=== PATIENT | female | born 1990 | race Two or more races ===

== ENCOUNTER 2020-01-04 10:42 | Emergency (ER) | payer MEDICAID ==
[~2020-01-04] VITALS: Ht 160 cm; Wt 75.7 kg
--- NOTE | 2020-01-04 11:00 | NUR ---
assumed care of pt; brad, c/o vaginal bleeding started this morning, per patient she had sexual intercourse last night,c/o back pain,6 weeks G1,P0,A0, pt awake, alert, -sob, nad noted, vss, pending md bui
[2020-01-04 11:30] LABS: BASOPHILS # (AUTO) 0.1 /CMM (0.0-0.2); BASOPHILS % (AUTO) 0.7 % (0.0-2.0); EOSINOPHILS % (AUTO) 1.8 % (0.0-6.0); HEMATOCRIT 39 % (33-45); HEMOGLOBIN 12.7 g/dL (11.5-14.8); LYMPHOCYTES # (AUTO) 2.2 /CMM (0.8-4.8); LYMPHOCYTES % (AUTO) 29.2 % (20.0-44.0); MEAN CORPUSCULAR HGB CONC 33 g/dl (31.0-36.0); MEAN CORPUSCULAR VOLUME 87 fL (82-100); MONOCYTES # (AUTO) 0.5 /CMM (0.1-1.30); MONOCYTES % (AUTO) 6.6 % (2.0-12.0); NEUTROPHILS # (AUTO) 4.7 /CMM (1.8-8.9); NEUTROPHILS % (AUTO) 61.7 % (43.0-81.0); PLATELET COUNT (AUTO) 221 /CMM (150-450); RED BLOOD CELL COUNT(AUTO) 4.44 MIL/uL (4.0-5.2); WHITE BLOOD COUNT (AUTO) 7.7 K/uL (4.3-11.0)
[2020-01-04] MEDS ORDERED: IV NS 0.9% 1,000 ML BAG IV ONE (11:30)
[2020-01-04 11:38] LABS: CALCIUM, SERUM 8.8 mg/dL (8.5-10.1); CREATININE 0.7 mg/dL (0.6-1.3); POTASSIUM 3.5 mmol/L (3.5-5.1)
[2020-01-04 12:04] LABS: ALBUMIN 4.2 g/dL (3.4-5.0); BILIRUBIN,DIRECT 0.1 mg/dL (0.0-0.2); BILIRUBIN,TOTAL 0.5 mg/dL (0.2-1.0); TOTAL PROTEIN, SERUM 7.3 g/dL (6.4-8.2)
[2020-01-04 12:32] LABS: APPEARANCE,URINE Clear (CLEAR); BILIRUBIN,URINE Negative (NEGATIVE); BLOOD, URINE Moderate Ery/uL (NEGATIVE); COLOR,URINE Yellow (YELLOW); KETONES,URINE 15 (NEGATIVE); LEUKOCYTE ESTERASE ,URINE Negative (NEGATIVE); NITRITE, URINE Negative (NEGATIVE); PROTEIN,URINE Negative (NEGATIVE); UGLUCOSE Negative (NEGATIVE); UROBILINOGEN,URINE 0.2 EU/dL (0.2)
--- NOTE | 2020-01-04 12:49 | NUR ---
CHAPERONED DR LYONS DURING PELVIC EXAM
[2020-01-04 12:52] LABS: BACTERIA,URINE Rare /HPF (None Seen); SQUAMOUS EPITHELIAL CELL,UR Few /HPF (None Seen); WBC,URINE 0-2 /HPF (0-3)
--- NOTE | 2020-01-04 13:00 | NUR ---
per lab; pt is not candidate for rhogam
--- NOTE | 2020-01-04 13:58 | NUR ---
Patient discharged to home in stable condition. Written and verbal after care instructions given. Patient verbalizes understanding of instruction. IV removed. Catheter intact and site benign. Pressure and 4x4 applied to site. No bleeding noted.
[2020-01-04 14:00] VITALS: BP 130/69
== END 2020-01-04 14:01 | disposition home or self-care (01) ==
LOC: ER 10:42
DX: O46.91 Antepartum hemorrhage, unspecified, first trimester (principal); O99.511 Diseases of the respiratory system complicating pregnancy, first trimester; J45.909 Unspecified asthma, uncomplicated; Z3A.01 Less than 8 weeks gestation of pregnancy
CPT/HCPCS: 76805; 80048; 80076; 81001; 84702; 85025; 85730; 87491; 87591; 99284; J7030; 36415; 81000-TC

== ENCOUNTER 2020-01-06 12:57 | Emergency (ER) | payer MEDICAID ==
[~2020-01-06] VITALS: Ht 160 cm; Wt 75.7 kg
[2020-01-06 13:01] VITALS: BP 143/80
== END 2020-01-06 14:14 | disposition home or self-care (01) ==
LOC: ER 13:00
DX: O20.0 Threatened abortion (principal); J45.909 Unspecified asthma, uncomplicated
CPT/HCPCS: 36415; 84702-TC

== ENCOUNTER 2020-01-30 13:07 | Emergency (ER) | payer MEDICAID ==
[~2020-01-30] VITALS: Ht 160 cm; Wt 74.8 kg
[2020-01-30] MEDS: IV NS 0.9% 1,000 ML BAG IV ONE (13:40)
[2020-01-30] MEDS ORDERED: METOCLOPRAMIDE HCL 10 MG/2 ML VIAL ONE (13:42)
[2020-01-30 13:44] LABS: BASOPHILS % (AUTO) 0.4 % (0.0-2.0); EOSINOPHILS % (AUTO) 0.6 % (0.0-6.0); HEMATOCRIT 41 % (33-45); HEMOGLOBIN 13.7 g/dL (11.5-14.8); LYMPHOCYTES % (AUTO) 18.5 % (20.0-44.0); MEAN CORPUSCULAR HGB CONC 34 g/dl (31.0-36.0); MEAN CORPUSCULAR VOLUME 87 fL (82-100); MONOCYTES # (AUTO) 0.6 /CMM (0.1-1.30); MONOCYTES % (AUTO) 5.2 % (2.0-12.0); NEUTROPHILS # (AUTO) 8.2 /CMM (1.8-8.9); NEUTROPHILS % (AUTO) 75.3 % (43.0-81.0); PLATELET COUNT (AUTO) 223 /CMM (150-450); RED BLOOD CELL COUNT(AUTO) 4.73 MIL/uL (4.0-5.2); WHITE BLOOD COUNT (AUTO) 10.9 K/uL (4.3-11.0)
[2020-01-30] MEDS: METOCLOPRAMIDE HCL 10 MG/2 ML VIAL IV ONE (13:44)
[2020-01-30 13:51] LABS: CALCIUM, SERUM 9.6 mg/dL (8.5-10.1); CREATININE 0.7 mg/dL (0.6-1.3); POTASSIUM 3.6 mmol/L (3.5-5.1)
[2020-01-30 15:03] VITALS: BP 123/67
--- NOTE | 2020-01-30 15:03 | NUR ---
Patient discharged to home in stable condition. Written and verbal after care instructions given. Patient verbalizes understanding of instruction.
== END 2020-01-30 15:05 | disposition home or self-care (01) ==
LOC: ER 13:12
DX: O21.9 Vomiting of pregnancy, unspecified (principal); O26.891 Other specified pregnancy related conditions, first trimester; E86.0 Dehydration; Z3A.01 Less than 8 weeks gestation of pregnancy
CPT/HCPCS: 80048; 84702; 85025; 96374; 99283; J2765; J7030; 36415

== ENCOUNTER 2020-08-31 12:42 | Emergency (ER) | payer MEDICAID ==
[~2020-08-31] VITALS: Ht 160 cm; Wt 80.3 kg
[2020-08-31 12:50] VITALS: BP 119/85
--- NOTE | 2020-08-31 12:54 | NUR ---
AT BEDSIDE FOR EVAL.
--- NOTE | 2020-08-31 13:00 | NUR ---
Patient discharged to home in stable condition. Written and verbal after care instructions given. Patient verbalizes understanding of instruction.Pt ambulatory with a steady gait
== END 2020-08-31 13:02 | disposition home or self-care (01) ==
LOC: ER 12:44
DX: J02.9 Acute pharyngitis, unspecified (principal); J45.909 Unspecified asthma, uncomplicated

== ENCOUNTER 2020-11-07 20:59 | Emergency (ER) | payer MEDICAID ==
[~2020-11-07] VITALS: Ht 160 cm; Wt 73.0 kg
[2020-11-07] MEDS ORDERED: IV NS 0.9% 1,000 ML BAG IV ONE (22:00)
--- NOTE | 2020-11-07 22:14 | NUR ---
BIBS FOR C/O MID BACK AND ABD PAIN, ON AND OFF H/A, - DYSURIA -N/V TO ER BED 2 ORDERS RECEIVED AND CARRIED OUT
--- NOTE | 2020-11-07 22:30 | NUR ---
tech at bedside for us
[2020-11-07 22:33] LABS: BASOPHILS % (AUTO) 0.4 % (0.0-2.0); EOSINOPHILS % (AUTO) 3.2 % (0.0-6.0); HEMATOCRIT 39 % (33-45); HEMOGLOBIN 12.8 g/dL (11.5-14.8); LYMPHOCYTES # (AUTO) 1.6 /CMM (0.8-4.8); LYMPHOCYTES % (AUTO) 13.2 % (20.0-44.0); MEAN CORPUSCULAR HGB CONC 33 g/dl (31.0-36.0); MEAN CORPUSCULAR VOLUME 89 fL (82-100); MONOCYTES # (AUTO) 0.5 /CMM (0.1-1.30); MONOCYTES % (AUTO) 4.2 % (2.0-12.0); NEUTROPHILS # (AUTO) 9.6 /CMM (1.8-8.9); PLATELET COUNT (AUTO) 229 /CMM (150-450); RED BLOOD CELL COUNT(AUTO) 4.38 MIL/uL (4.0-5.2); WHITE BLOOD COUNT (AUTO) 12.1 K/uL (4.3-11.0)
[2020-11-07 22:51] LABS: BILIRUBIN,DIRECT 0.1 mg/dL (0.0-0.2); BILIRUBIN,TOTAL 0.3 mg/dL (0.2-1.0); CALCIUM, SERUM 9.3 mg/dL (8.5-10.1); CREATININE 0.8 mg/dL (0.6-1.3); POTASSIUM 3.7 mmol/L (3.5-5.1)
[2020-11-07 23:34] LABS: BILIRUBIN,URINE NEGATIVE (NEGATIVE); COLOR,URINE YELLOW (YELLOW); LEUKOCYTE ESTERASE ,URINE NEGATIVE (NEGATIVE); NITRITE, URINE NEGATIVE (NEGATIVE); PROTEIN,URINE NEGATIVE (NEGATIVE); UGLUCOSE NEGATIVE (NEGATIVE); UROBILINOGEN,URINE 0.2 EU/dL (0.2)
[2020-11-07] MEDS ORDERED: IBUPROFEN 400 MG TABLET ONE (23:50)
--- NOTE | 2020-11-07 23:58 | NUR ---
Patient discharged to home in stable condition. Written and verbal after care instructions given. Patient verbalizes understanding of instruction.IV removed. Catheter intact and site benign. Pressure and 4x4 applied to site. No bleeding noted.
[2020-11-07 23:59] VITALS: BP 111/70
[2020-11-08] MEDS ORDERED: IBUPROFEN 400 MG TABLET PO ONE
== END 2020-11-07 23:59 | disposition home or self-care (01) ==
LOC: ER 21:01
DX: K80.50 Calculus of bile duct without cholangitis or cholecystitis without obstruction (principal); G43.909 Migraine, unspecified, not intractable, without status migrainosus; J45.909 Unspecified asthma, uncomplicated
CPT/HCPCS: 36415; 76705; 80048; 80076; 81003; 83690; 85025; 96360; 99284; J7030

== ENCOUNTER 2020-11-19 12:55 | Emergency (ER) | payer MEDICAID ==
[~2020-11-19] VITALS: Ht 160 cm; Wt 72.6 kg
--- NOTE | 2020-11-19 13:15 | NUR ---
BIB SELF C/O RUQ ABDOMINAL PAIN, NAUSEA SINCE LAST NIGHT. VS CHECKED. HOOKED ON MONITOR. SEEN BY MD. IV ACCESS STARTED BLOOD DRAW DONE SENT TO LAB
[2020-11-19] MEDS ORDERED: KETOROLAC TROMETHAMINE 15 MG/ML VIAL ONE (13:37)
[2020-11-19] MEDS ORDERED: ONDANSETRON HCL/PF 4 MG/2 ML VIAL ONE (13:38)
[2020-11-19 13:40] LABS: BASOPHILS % (AUTO) 0.4 % (0.0-2.0); HEMATOCRIT 41 % (33-45); HEMOGLOBIN 13.7 g/dL (11.5-14.8); LYMPHOCYTES # (AUTO) 1.6 /CMM (0.8-4.8); LYMPHOCYTES % (AUTO) 14.8 % (20.0-44.0); MEAN CORPUSCULAR HGB CONC 34 g/dl (31.0-36.0); MEAN CORPUSCULAR VOLUME 89 fL (82-100); MONOCYTES # (AUTO) 0.6 /CMM (0.1-1.30); MONOCYTES % (AUTO) 5.4 % (2.0-12.0); NEUTROPHILS # (AUTO) 8.3 /CMM (1.8-8.9); NEUTROPHILS % (AUTO) 77.4 % (43.0-81.0); PLATELET COUNT (AUTO) 233 /CMM (150-450); RED BLOOD CELL COUNT(AUTO) 4.57 MIL/uL (4.0-5.2); WHITE BLOOD COUNT (AUTO) 10.8 K/uL (4.3-11.0)
[2020-11-19] MEDS: IV NS 0.9% 1,000 ML BAG IV ONE (13:43)
[2020-11-19] MEDS: KETOROLAC TROMETHAMINE INJ 30 MG/ML VIAL IV ONE (13:44)
[2020-11-19] MEDS: ONDANSETRON HCL/PF 4 MG/2 ML VIAL IVP ONE (13:44)
[2020-11-19 13:49] LABS: CALCIUM, SERUM 9.4 mg/dL (8.5-10.1); CREATININE 0.9 mg/dL (0.6-1.3); POTASSIUM 4.3 mmol/L (3.5-5.1)
[2020-11-19 13:54] LABS: ALBUMIN 4.2 g/dL (3.4-5.0); BILIRUBIN,DIRECT 0.1 mg/dL (0.0-0.2); BILIRUBIN,TOTAL 0.4 mg/dL (0.2-1.0); TOTAL PROTEIN, SERUM 8.1 g/dL (6.4-8.2)
--- NOTE | 2020-11-19 14:00 | NUR ---
PT STATES THAT SHE IS STILL UNABLE TO PROVIDE URINE SPECIMEN AT THIS TIME. IV FLUIDS RUNNING
[2020-11-19] MEDS ORDERED: ACET325T53 MC (14:48)
[2020-11-19] MEDS ORDERED: ACETAMINOPHEN 325 MG TABLET ONE (15:23)
[2020-11-19 15:34] VITALS: BP 124/78
[2020-11-19] MEDS: ACETAMINOPHEN 325 MG TABLET PO ONE (15:34)
== END 2020-11-19 15:35 | disposition home or self-care (01) ==
LOC: ER 12:57
DX: K80.70 Calculus of gallbladder and bile duct without cholecystitis without obstruction (principal); G43.909 Migraine, unspecified, not intractable, without status migrainosus; J45.909 Unspecified asthma, uncomplicated
CPT/HCPCS: 76705; 80048; 80076; 83690; 85025; 96361; 96374; 96375; 99284; J1885; J2405; J7030; 36415

== ENCOUNTER 2020-11-30 10:48 | Emergency (ER) | payer MEDICAID ==
[~2020-11-30] VITALS: Ht 160 cm; Wt 72.6 kg
[~2020-11-30 10:48] MED LIST: ACET325T53 MC
--- NOTE | 2020-11-30 11:20 | NUR ---
US AT BEDSIDE
[2020-11-30] MEDS ORDERED: MORPHINE SULFATE INJ 2 MG/ML DISP.SYRIN ONE (11:24)
[2020-11-30] MEDS ORDERED: ONDANSETRON HCL/PF 4 MG/2 ML VIAL ONE (11:24)
--- NOTE | 2020-11-30 11:27 | NUR ---
BIBS FROM HOME TO ER BED 16. AAOX4. NOT IN RESP DISTRESS. AMBULATORY. CAME IN FOR RUQ ABD PAIN SINCE LAST NIGHT. PT REPORTS SHE HAVE GALLBLADDER STONE AND AWATING SURGERY. PAIN IS RATED 6/10 SHARP DULL PAIN RADIATING TO LEFT AND BACK. PT ALSO REPORTS TAHT SHE HAD EPISODES OF VOMMITING AND NAUSEA. MD WAS AT THE BEDSIDE FOR EVAL. ORDERS RECEIVED, NOTED AND CARRIED OUT. US AT BEDSIDE.
[2020-11-30] MEDS ORDERED: ONDANSETRON HCL/PF 4 MG/2 ML VIAL IVP ONE (11:30)
[2020-11-30] MEDS ORDERED: IV NS 0.9% 500 ML BAG IV ONE (11:30)
[2020-11-30] MEDS ORDERED: MORPHINE SULFATE INJ 2 MG/ML DISP.SYRIN IV ONE (11:30)
[2020-11-30 12:05] LABS: BASOPHILS # (AUTO) 0.1 /CMM (0.0-0.2); BASOPHILS % (AUTO) 0.6 % (0.0-2.0); EOSINOPHILS % (AUTO) 1.3 % (0.0-6.0); HEMATOCRIT 39 % (33-45); HEMOGLOBIN 12.8 g/dL (11.5-14.8); LYMPHOCYTES # (AUTO) 1.3 /CMM (0.8-4.8); LYMPHOCYTES % (AUTO) 11.6 % (20.0-44.0); MEAN CORPUSCULAR HGB CONC 32 g/dl (31.0-36.0); MEAN CORPUSCULAR VOLUME 90 fL (82-100); MONOCYTES # (AUTO) 0.5 /CMM (0.1-1.30); MONOCYTES % (AUTO) 4.7 % (2.0-12.0); NEUTROPHILS # (AUTO) 9.2 /CMM (1.8-8.9); NEUTROPHILS % (AUTO) 81.8 % (43.0-81.0); PLATELET COUNT (AUTO) 188 /CMM (150-450); RED BLOOD CELL COUNT(AUTO) 4.39 MIL/uL (4.0-5.2); WHITE BLOOD COUNT (AUTO) 11.3 K/uL (4.3-11.0)
[2020-11-30 12:31] LABS: CALCIUM, SERUM 9.3 mg/dL (8.5-10.1); CREATININE 0.8 mg/dL (0.6-1.3)
[2020-11-30 12:37] LABS: BILIRUBIN,DIRECT 0.1 mg/dL (0.0-0.2); BILIRUBIN,TOTAL 0.4 mg/dL (0.2-1.0); TOTAL PROTEIN, SERUM 7.4 g/dL (6.4-8.2)
[2020-11-30] MEDS ORDERED: AMOX-427 PO (12:48)
[2020-11-30] MEDS ORDERED: IBUP-1957 PO (12:48)
[2020-11-30] MEDS ORDERED: HYDR-3976 GT (12:48)
[2020-11-30 13:02] VITALS: BP 112/70
--- NOTE | 2020-11-30 13:02 | NUR ---
Patient discharged to home in stable condition. Written and verbal after care instructions given. Patient verbalizes understanding of instruction.IV removed. Catheter intact and site benign. Pressure and 4x4 applied to site. No bleeding noted. Pt ambulatory with a steady gait
== END 2020-11-30 13:00 | disposition home or self-care (01) ==
LOC: ER 11:01
DX: K80.50 Calculus of bile duct without cholangitis or cholecystitis without obstruction (principal); G43.909 Migraine, unspecified, not intractable, without status migrainosus; J45.909 Unspecified asthma, uncomplicated; K76.0 Fatty (change of) liver, not elsewhere classified; Z79.899 Other long term (current) drug therapy
CPT/HCPCS: 76705; 80048; 80076; 83690; 85025; 96374; 96375; 99284; J2270; J2405; J7040

== ENCOUNTER 2020-12-01 22:38 | Inpatient (IN) | payer MEDICAID ==
[~2020-12-01] VITALS: Ht 160 cm; Wt 73.0 kg
[~2020-12-01 22:38] MED LIST changes: -ACET325T53 MC; +AMOX-427 PO; +HYDR-3976 GT; +IBUP-1957 PO
--- NOTE | 2020-12-01 22:43 | NUR ---
PT AAOX4. BIBSELF C/O RUQ ABD PAIN. PT WAS SEEN AT [facility] ER X2 DAYS AGO FOR CHOLELITHIASIS. PLACED ON AUGMENTING. PT PLACED IN BED 10 ON MONITOR AND PULSE OX. AWAITING MD FOR EVAL AND ORDERS.
[2020-12-01] MEDS ORDERED: ONDANSETRON HCL/PF 4 MG/2 ML VIAL IVP ONE (23:00)
[2020-12-01] MEDS ORDERED: ONDANSETRON HCL/PF 4 MG/2 ML VIAL ONE (23:00)
[2020-12-01] MEDS ORDERED: MORPHINE SULFATE INJ 2 MG/ML DISP.SYRIN IV ONE (23:00)
[2020-12-01] MEDS ORDERED: MORPHINE SULFATE INJ 4 MG/ML DISP.SYRIN ONE (23:00)
[2020-12-01] MEDS ORDERED: IV NS 0.9% 1,000 ML BAG IV ONE (23:00)
[2020-12-01 23:03] LABS: BASOPHILS # (AUTO) 0.1 /CMM (0.0-0.2); BASOPHILS % (AUTO) 1.4 % (0.0-2.0); EOSINOPHILS % (AUTO) 4.6 % (0.0-6.0); HEMATOCRIT 41 % (33-45); HEMOGLOBIN 13.4 g/dL (11.5-14.8); LYMPHOCYTES # (AUTO) 1.5 /CMM (0.8-4.8); LYMPHOCYTES % (AUTO) 18.9 % (20.0-44.0); MEAN CORPUSCULAR HGB CONC 33 g/dl (31.0-36.0); MEAN CORPUSCULAR VOLUME 89 fL (82-100); MONOCYTES # (AUTO) 0.4 /CMM (0.1-1.30); MONOCYTES % (AUTO) 4.5 % (2.0-12.0); NEUTROPHILS # (AUTO) 5.7 /CMM (1.8-8.9); NEUTROPHILS % (AUTO) 70.6 % (43.0-81.0); PLATELET COUNT (AUTO) 196 /CMM (150-450); RED BLOOD CELL COUNT(AUTO) 4.59 MIL/uL (4.0-5.2); WHITE BLOOD COUNT (AUTO) 8.1 K/uL (4.3-11.0)
[2020-12-01 23:16] LABS: ALBUMIN 4.3 g/dL (3.4-5.0); BILIRUBIN,DIRECT 0.7 mg/dL (0.0-0.2); BILIRUBIN,TOTAL 1.4 mg/dL (0.2-1.0); CALCIUM, SERUM 9.2 mg/dL (8.5-10.1); CREATININE 0.9 mg/dL (0.6-1.3); POTASSIUM 3.6 mmol/L (3.5-5.1)
--- NOTE | 2020-12-02 00:01 | NUR ---
US AT BEDSIDE
--- NOTE | 2020-12-02 00:29 | NUR ---
DENAEID SWABBED, SENT TO LAB.
--- NOTE | 2020-12-02 00:42 | NUR ---
DR PERKINS PAGED PER DR STOVER
--- NOTE | 2020-12-02 00:47 | NUR ---
[facility] CALLED FOR HIGHER LEVEL OF CARE. NO BEDS AVAILABLE.
--- NOTE | 2020-12-02 01:10 | NUR ---
[facility]SF[facility] CALLED. NO BED AVAILABLE.
--- NOTE | 2020-12-02 01:15 | NUR ---
[facility] CALLED FOR TRANSFER. NO BED AVAILABLE.
--- NOTE | 2020-12-02 01:16 | NUR ---
CALL FROM LAB, RAPID COVID NEGATIVE.
--- NOTE | 2020-12-02 01:55 | NUR ---
[facility] called for higher level of care.
--- NOTE | 2020-12-02 02:34 | NUR ---
Rcvd call back from [facility]. No bed available.
--- NOTE | 2020-12-02 03:24 | NUR ---
[facility] ([facility]) Center called. Only open to Burn or STEMI
--- NOTE | 2020-12-02 03:30 | NUR ---
[facility] transfer center called for transfer. Facesheet and clinicals faxed.
[2020-12-02] MEDS ORDERED: KETOROLAC TROMETHAMINE INJ 30 MG/ML VIAL IV ONE (05:00)
[2020-12-02] MEDS ORDERED: KETOROLAC TROMETHAMINE 15 MG/ML VIAL ONE (05:01)
--- NOTE | 2020-12-02 05:26 | NUR ---
PT WILL BE ADMITTED, WILL NEED MRCP.
--- NOTE | 2020-12-02 05:35 | NUR ---
Call from [facility] transfer center. Unable to accept pt.
[2020-12-02] MEDS ORDERED: ACETAMINOPHEN 325 MG TABLET PO PRN (06:00)
[2020-12-02] MEDS ORDERED: MAGNESIUM HYDROXIDE 30 ML UDC PO PRN (06:00)
[2020-12-02] MEDS ORDERED: MAG HYDROX/AL HYDROX/SIMETH 30 ML UDC PO PRN (06:00)
[2020-12-02] MEDS ORDERED: ZOLPIDEM TARTRATE 5 MG TABLET PO PRN (06:00)
[2020-12-02] MEDS ORDERED: Z GUARD REMEDY 2 OZ OINT TP PRN (06:00)
[2020-12-02] MEDS ORDERED: LEVO50TA8 PO (06:12)
--- NOTE | 2020-12-02 07:12 | NUR ---
PT RESTING COMFORTABLY. AWAITING FOR MEDICATIONS VERIFICATION.
--- NOTE | 2020-12-02 07:26 | NUR ---
ENDORSEMENT RECEIVED FROM GURU MAHAJAN FOR [facility]
[2020-12-02] MEDS ORDERED: LEVOTHYROXINE SODIUM 50 MCG TABLET ONE (08:04)
[2020-12-02] MEDS: LEVOTHYROXINE SODIUM 50 MCG TABLET PO SCH (08:10)
[2020-12-02] MEDS ORDERED: AMOX/CLAVULANATE 875 MG TABLET ONE ×2 (08:55→21:17)
[2020-12-02] MEDS: IV NS 0.9% 1,000 ML IV PRN ×2 (09:00→21:00)
[2020-12-02] MEDS: AMOX/CLAVULANATE 875 MG TABLET PO SCH ×2 (09:02→21:17)
--- NOTE | 2020-12-02 10:12 | NUR ---
PATIENT IN BED AWAKE, HOOKED TO MONITOR, VSS. WILL CONTINUE TO MONITOR ACCORDINGLY
--- NOTE | 2020-12-02 14:32 | NUR ---
WHEELED OUT VIA [employer] FOR CT SCAN Addendum: 12/02/20 at 1522 by STEPHAN WHEELED OUT VIA [employer] CASE [facility] FOR MRI
[2020-12-02] MEDS ORDERED: ONDANSETRON HCL/PF 4 MG/2 ML VIAL ONE (15:13)
[2020-12-02] MEDS: ONDANSETRON HCL/PF 4 MG/2 ML VIAL IVP PRN (15:20)
--- NOTE | 2020-12-02 15:21 | NUR ---
PATIENT WHEELED BACK VIA WHEELCHAIR BY CORRINA ANN FROM MRI
[2020-12-02] MEDS ORDERED: ACETAMINOPHEN 325 MG TABLET ONE (18:09)
--- NOTE | 2020-12-02 18:16 | NUR ---
PATIENT ON 08/08 ABDOMINAL PAIN, MADE DR ANDERSON AWARE. RECEIVED ORDER FOR MORPHINE 2MG IVP Q4 PRN. CARRIED OUT.
[2020-12-02] MEDS ORDERED: MORPHINE SULFATE INJ 2 MG/ML DISP.SYRIN ONE (18:20)
[2020-12-02] MEDS: MORPHINE SULFATE INJ 2 MG/ML DISP.SYRIN IV PRN (18:23)
--- NOTE | 2020-12-02 19:09 | NUR ---
REPORT GIVEN TO GURU MAHAJAN FOR [facility]
--- NOTE | 2020-12-02 19:57 | NUR ---
TOOK OVER PT CARE. PT RESTING IN BED COMFORTBALY. VSS. AWARE OF PLAN OF CARE. WILL CONTINUE TO MONITOR.
--- NOTE | 2020-12-03 02:20 | NUR ---
PT C/O 05/08 ABD PAIN. WILL ADMINISTER PRN MEDICATIONS.
[2020-12-03] MEDS ORDERED: MORPHINE SULFATE INJ 2 MG/ML DISP.SYRIN ONE ×2 (02:23→22:31)
[2020-12-03] MEDS: MORPHINE SULFATE INJ 2 MG/ML DISP.SYRIN IV PRN ×2 (02:26→22:45)
[2020-12-03] MEDS ORDERED: ONDANSETRON HCL/PF 4 MG/2 ML VIAL ONE ×2 (02:28→22:31)
[2020-12-03] MEDS: ONDANSETRON HCL/PF 4 MG/2 ML VIAL IVP PRN ×2 (02:31→22:45)
--- NOTE | 2020-12-03 03:10 | NUR ---
PT AMBULATED TO THE RESTROOM.
[2020-12-03 04:52] LABS: BASOPHILS % (AUTO) 0.4 % (0.0-2.0); HEMATOCRIT 38 % (33-45); HEMOGLOBIN 12.4 g/dL (11.5-14.8); LYMPHOCYTES # (AUTO) 1.2 /CMM (0.8-4.8); LYMPHOCYTES % (AUTO) 20.6 % (20.0-44.0); MEAN CORPUSCULAR HGB CONC 33 g/dl (31.0-36.0); MEAN CORPUSCULAR VOLUME 90 fL (82-100); MONOCYTES # (AUTO) 0.4 /CMM (0.1-1.30); MONOCYTES % (AUTO) 7.2 % (2.0-12.0); NEUTROPHILS # (AUTO) 4.3 /CMM (1.8-8.9); NEUTROPHILS % (AUTO) 70.8 % (43.0-81.0); PLATELET COUNT (AUTO) 171 /CMM (150-450); RED BLOOD CELL COUNT(AUTO) 4.19 MIL/uL (4.0-5.2); WHITE BLOOD COUNT (AUTO) 6.1 K/uL (4.3-11.0)
[2020-12-03 05:32] LABS: BILIRUBIN,DIRECT 3.3 mg/dL (0.0-0.2); BILIRUBIN,TOTAL 4.6 mg/dL (0.2-1.0); CALCIUM, SERUM 9.5 mg/dL (8.5-10.1); CREATININE 0.8 mg/dL (0.6-1.3); MAGNESIUM 1.6 mg/dL (1.8-2.4); PHOSPHORUS 4.2 mg/dL (2.5-4.9); POTASSIUM 4.2 mmol/L (3.5-5.1); TOTAL PROTEIN, SERUM 7.4 g/dL (6.4-8.2)
--- NOTE | 2020-12-03 06:19 | NUR ---
PT RESTING IN BED COMFORTABLY. VSS.
--- NOTE | 2020-12-03 07:36 | NUR ---
RECEIVED REPORT FROM GURU MAHAJAN FOR [facility]
--- NOTE | 2020-12-03 08:13 | NUR ---
DR FRIED AT BEDSIDE, STATES PATIENT NEEDS ERCP. DR FRIED MADE DR ANDERSON AND DR VILLALBA AWARE.
[2020-12-03] MEDS ORDERED: LEVOTHYROXINE SODIUM 50 MCG TABLET ONE (08:35)
[2020-12-03] MEDS ORDERED: AMOX/CLAVULANATE 875 MG TABLET ONE ×2 (08:36→21:17)
[2020-12-03] MEDS: LEVOTHYROXINE SODIUM 50 MCG TABLET PO SCH (08:38)
[2020-12-03] MEDS: AMOX/CLAVULANATE 875 MG TABLET PO SCH ×2 (08:38→21:10)
[2020-12-03] MEDS ORDERED: PANTOPRAZOLE 40 MG VIAL ONE (10:12)
[2020-12-03] MEDS: PANTOPRAZOLE 40 MG VIAL IV SCH (10:20)
[2020-12-03] MEDS ORDERED: Magnesium 1GM/D5W 100ML PREMIX 200 ML IV ONE (10:28)
[2020-12-03] MEDS: Magnesium 1GM/D5W 100ML PREMIX 100 ML IV SCH ×2 (10:43→11:46)
--- NOTE | 2020-12-03 11:16 | NUR ---
PATIENT REMAINS NPO. HOOKED TO MONITOR. VSS. WILL CONTINUE TO MONITOR ACCORDINGLY
[2020-12-03] MEDS: IV NS 0.9% 1,000 ML IV PRN (12:00)
--- NOTE | 2020-12-03 14:52 | NUR ---
PATIENT IN BED, HOOKED TO MONITOR, VSS. KEPT COMFORTABLE.
--- NOTE | 2020-12-03 17:47 | NUR ---
PER NAILING MACHINE FEEDER, NAILING MACHINE FEEDER STILL WORKING FOR HIGH LEVEL OF CARE TRANSFER FOR ERCP.
--- NOTE | 2020-12-03 19:17 | NUR ---
PATIENT IN BED, HOOKED TO MONITOR, VSS. KEPT COMFORTABLE.
--- NOTE | 2020-12-03 19:27 | NUR ---
REPORT GIVEN TO TK MAHAJAN FOR [facility]
--- NOTE | 2020-12-03 20:21 | NUR ---
PATIENT IS AAOX4. NO SOB .BREATHING EVENLY AND UNLABORED ON ROOM AIR. CONNECTED TO THE MONITOR. PATIENT IS DENIES ANY COMPLAINTS AT THE MOMENT. PATIENT IS KEPT COMFORTABLE WITH CLEAN BLANKETS AND SHEETS. PATIENT'S BED AT THE LOWEST POSITION. CALL LIGHT IS WITHIN REACH. WILL CONTINUE TO MONITOR THE PATIENT.
--- NOTE | 2020-12-03 23:41 | NUR ---
PATIENT AMBULATED TO THE RESTROOM WITH A STEADY GAIT.
--- NOTE | 2020-12-04 00:53 | NUR ---
PATIENT AMBULATED TO THE PATIENT WITH A STEADY GAIT.
--- NOTE | 2020-12-04 03:58 | NUR ---
PATIENT IS SLEEPING. EASILAY AROUSABLE THROUGH VERBAL STIMULI. PATIENT IS RBEATHING EVENLY AND UNLABORED ON ROOM AIR. CONNECTED TO THE MONITOR. PATIENT'S BED AT THE LOWEST POSITION. CALL LIGHT IS WITHIN REACH. PERSONAL ITEMS WITHIN REACH. WILL CONTINUE TO MONITOR THE PATIENT.
[2020-12-04 04:09] LABS: BASOPHILS % (AUTO) 0.2 % (0.0-2.0); EOSINOPHILS % (AUTO) 0.7 % (0.0-6.0); HEMATOCRIT 39 % (33-45); HEMOGLOBIN 12.9 g/dL (11.5-14.8); LYMPHOCYTES # (AUTO) 1.7 /CMM (0.8-4.8); LYMPHOCYTES % (AUTO) 20.6 % (20.0-44.0); MEAN CORPUSCULAR HGB CONC 33 g/dl (31.0-36.0); MEAN CORPUSCULAR VOLUME 91 fL (82-100); MONOCYTES # (AUTO) 0.5 /CMM (0.1-1.30); MONOCYTES % (AUTO) 5.9 % (2.0-12.0); NEUTROPHILS # (AUTO) 6.1 /CMM (1.8-8.9); NEUTROPHILS % (AUTO) 72.6 % (43.0-81.0); PLATELET COUNT (AUTO) 188 /CMM (150-450); RED BLOOD CELL COUNT(AUTO) 4.35 MIL/uL (4.0-5.2); WHITE BLOOD COUNT (AUTO) 8.4 K/uL (4.3-11.0)
[2020-12-04 04:29] LABS: ALBUMIN 4.3 g/dL (3.4-5.0); BILIRUBIN,DIRECT 0.5 mg/dL (0.0-0.2); BILIRUBIN,TOTAL 1.2 mg/dL (0.2-1.0); CALCIUM, SERUM 9.6 mg/dL (8.5-10.1); MAGNESIUM 1.7 mg/dL (1.8-2.4); PHOSPHORUS 3.7 mg/dL (2.5-4.9); POTASSIUM 4.1 mmol/L (3.5-5.1); TOTAL PROTEIN, SERUM 7.9 g/dL (6.4-8.2)
--- NOTE | 2020-12-04 07:20 | NUR ---
RECEIVED REPORT FROM ZAINA FREY FOR [facility]. PT ASLEEP ON BED EASILY AROUSABLE, NOT IN RESPIRATORY DISTRESS, V/S STABLE ,KEPT RESTED AND COMFORTABLE. WILL CONTINUE TO MONITOR.
[2020-12-04] MEDS: LEVOTHYROXINE SODIUM 50 MCG TABLET PO SCH ×2 (07:30→07:55)
--- NOTE | 2020-12-04 07:37 | NUR ---
REPORT GIVEN TO MEGHANA MAHAJAN FOR [facility].
[2020-12-04] MEDS ORDERED: LEVOTHYROXINE SODIUM 50 MCG TABLET ONE (07:53)
[2020-12-04] MEDS ORDERED: PANTOPRAZOLE 40 MG VIAL ONE (08:20)
--- NOTE | 2020-12-04 08:28 | NUR ---
CONTACTED REGARDING NPO STATUS OF THE PT.
[2020-12-04] MEDS: PANTOPRAZOLE 40 MG VIAL IV SCH (08:30)
[2020-12-04] MEDS: IV NS 0.9% 1,000 ML IV PRN (08:31)
[2020-12-04] MEDS: AMOX/CLAVULANATE 875 MG TABLET PO SCH (08:31)
[2020-12-04] MEDS ORDERED: MORPHINE SULFATE INJ 2 MG/ML DISP.SYRIN ONE (08:32)
[2020-12-04] MEDS ORDERED: ONDANSETRON HCL/PF 4 MG/2 ML VIAL ONE (08:46)
[2020-12-04] MEDS: ONDANSETRON HCL/PF 4 MG/2 ML VIAL IVP PRN (09:14)
[2020-12-04] MEDS: MORPHINE SULFATE INJ 2 MG/ML DISP.SYRIN IV PRN (09:14)
--- NOTE | 2020-12-04 09:25 | NUR ---
IV removed. Catheter intact and site benign. Pressure and 4x4 applied to site. No bleeding noted.
--- NOTE | 2020-12-04 09:26 | NUR ---
Patient does not wish to proceed with medical care recommended by Dr. Hunter. Patient given information related to possible complications, up to and including , which could occur as a result of leaving the hospital at this time. Patient verbalizes understanding of risks involved due to leaving against medical advice. Patient has signed AMA form.
[2020-12-04 09:27] VITALS: BP 121/73
[2020-12-04] MEDS ORDERED: Magnesium 1GM/D5W 100ML PREMIX 100 ML IV SCH (11:00)
== END 2020-12-04 10:00 | disposition left against medical advice (07) ==
LOC: ER 22:41 → TRANSITION 12-02 06:08
PROVIDERS: ADMIT Student in an Organized Health Care Education/Training Program; ATTEND Student in an Organized Health Care Education/Training Program
DX: K80.60 Calculus of gallbladder and bile duct with cholecystitis, unspecified, without obstruction (principal); J45.909 Unspecified asthma, uncomplicated; K76.0 Fatty (change of) liver, not elsewhere classified; E28.2 Polycystic ovarian syndrome; G43.909 Migraine, unspecified, not intractable, without status migrainosus; K82.8 Other specified diseases of gallbladder
CPT/HCPCS: 36415; 74181-TC; 76705-TC; 80048-TC; 80053-TC; 80076-TC; 83690-TC; 83735-TC; 84100-TC; 85025-TC; 87081-TC; A4217; C9113; C9803; G0378; J1885; J2270; J2405; J3475; J7030

== ENCOUNTER 2021-10-31 03:54 | Emergency (ER) | payer MEDICAID, OTHER ==
[~2021-10-31] VITALS: Ht 167.6 cm; Wt 80.3 kg
[~2021-10-31 03:54] MED LIST changes: +LEVO50TA8 PO
--- NOTE | 2021-10-31 04:19 | NUR ---
BIBFAMILY C/O DIZZINESS, RIGHT SIDE CP, RIGHT ABD PAIN, S/P DRINKING COFFEE PT ALERT ORIENTED X4 RR EVEN UNLABORED NO SOB NOTED. PT CONNECTED TO CARDIAC AND POX MONITOR.
[2021-10-31] MEDS ORDERED: ACETAMINOPHEN ES 500 MG TABLET PO ONE (04:30)
[2021-10-31] MEDS ORDERED: IV NS 0.9% 1,000 ML BAG IV ONE (04:30)
[2021-10-31] MEDS ORDERED: ACETAMINOPHEN ES 500 MG TABLET ONE (04:37)
[2021-10-31] MEDS ORDERED: predniSONE 50 MG TABLET PO ONE (05:00)
[2021-10-31] MEDS ORDERED: Magnesium 1GM/D5W 100ML PREMIX PIGGYBACK IV ONE (05:00)
--- NOTE | 2021-10-31 05:00 | NUR ---
URINE COLLECTED SENT TO LAB
[2021-10-31] MEDS ORDERED: Magnesium 1GM/D5W 100ML PREMIX 100 ML IV ONE (05:06)
[2021-10-31] MEDS ORDERED: predniSONE 20 MG TABLET ONE (05:06)
[2021-10-31 05:11] LABS: BASOPHILS % (AUTO) 0.4 % (0.0-2.0); EOSINOPHILS % (AUTO) 2.5 % (0.0-6.0); HEMATOCRIT 42 % (33-45); LYMPHOCYTES # (AUTO) 3.3 K/uL (0.8-4.8); LYMPHOCYTES % (AUTO) 33.4 % (20.0-44.0); MEAN CORPUSCULAR HGB CONC 33 g/dl (31.0-36.0); MEAN CORPUSCULAR VOLUME 89 fL (82-100); MONOCYTES # (AUTO) 0.6 K/uL (0.1-1.30); MONOCYTES % (AUTO) 6.3 % (2.0-12.0); NEUTROPHILS # (AUTO) 5.7 K/uL (1.8-8.9); NEUTROPHILS % (AUTO) 57.4 % (43.0-81.0); PLATELET COUNT (AUTO) 231 K/uL (150-450); RED BLOOD CELL COUNT(AUTO) 4.75 MIL/uL (4.0-5.2)
[2021-10-31] MEDS ORDERED: LIDOCAINE VISCOUS 2% UD 15 ML UDC ONE (05:30)
[2021-10-31] MEDS ORDERED: LIDOCAINE VISCOUS 2% UD 15 ML UDC MM ONE (05:30)
[2021-10-31] MEDS ORDERED: MAG HYDROX/AL HYDROX/SIMETH 30 ML UDC PO ONE (05:30)
[2021-10-31] MEDS ORDERED: MAG HYDROX/AL HYDROX/SIMETH 30 ML UDC ONE (05:30)
[2021-10-31 05:42] LABS: CARBON DIOXIDE 26 mmol/L (21-32); CREATININE 0.9 mg/dL (0.6-1.3); GLUCOSE 87 mg/dL (74-106); POTASSIUM 3.4 mmol/L (3.5-5.1); UREA NITROGEN, BLOOD 15 mg/dL (7-18)
[2021-10-31 05:46] LABS: ALANINE AMINOTRANSFERASE 17 U/L (12-78); ALBUMIN 4.7 g/dL (3.4-5.0); BILIRUBIN,DIRECT 0.1 mg/dL (0.0-0.2); BILIRUBIN,TOTAL 0.5 mg/dL (0.2-1.0)
[2021-10-31 06:07] LABS: SODIUM SERUM 140 mmol/L (136-145)
[2021-10-31 06:08] LABS: ALKALINE PHOSPHATASE 94 U/L (46-116); ASPARTATE AMINOTRANSFERASE 10 U/L (15-37); CALCIUM, SERUM 8.8 mg/dL (8.5-10.1); CHLORIDE 102 mmol/L (98-107); TOTAL PROTEIN, SERUM 8.7 g/dL (6.4-8.2)
--- NOTE | 2021-10-31 06:47 | NUR ---
floowed up with lab regarding urine. placed on hold, no answer
--- NOTE | 2021-10-31 07:11 | NUR ---
FOLLOWED UP WITH LAB REGARDING URINE PREG. STILL NEEDS TO BE PRECESSED
[2021-10-31 07:17] LABS: BILIRUBIN,URINE NEGATIVE (NEGATIVE); COLOR,URINE YELLOW (YELLOW); LEUKOCYTE ESTERASE ,URINE NEGATIVE (NEGATIVE); NITRITE, URINE NEGATIVE (NEGATIVE); PH,URINE 5.5 (5.0-8.0); PROTEIN,URINE NEGATIVE (NEGATIVE); UGLUCOSE NEGATIVE (NEGATIVE); UROBILINOGEN,URINE 0.2 EU/dL (0.2)
[2021-10-31 08:43] LABS: BACTERIA,URINE Few /HPF (None Seen); RBC,URINE 0-4 /HPF (0-2); SQUAMOUS EPITHELIAL CELL,UR Moderate /HPF (None Seen); WBC,URINE 0-2 /HPF (0-3)
[2021-10-31 09:40] VITALS: BP 122/78
--- NOTE | 2021-10-31 09:40 | NUR ---
IV removed. Catheter intact and site benign. Pressure and 4x4 applied to site. No bleeding noted. Patient discharged to home in stable condition. Written and verbal after care instructions given. Patient verbalizes understanding of instruction.
== END 2021-10-31 09:41 | disposition home or self-care (01) ==
LOC: ER 03:54
DX: R42 Dizziness and giddiness (principal); R07.9 Chest pain, unspecified; G43.909 Migraine, unspecified, not intractable, without status migrainosus; J45.909 Unspecified asthma, uncomplicated; Z79.1 Long term (current) use of non-steroidal anti-inflammatories (NSAID); Z79.2 Long term (current) use of antibiotics; Z79.899 Other long term (current) drug therapy
CPT/HCPCS: 36415; 70450; 71045; 80048; 80076; 81001; 83690; 84484; 84703; 85025; 85378; 96365; 99285; J3475; J7512

== ENCOUNTER 2022-02-11 07:36 | Emergency (ER) | payer OTHER ==
[~2022-02-11] VITALS: Ht 160 cm; Wt 79.4 kg
--- NOTE | 2022-02-11 08:02 | NUR ---
BIBS FOR C/O INTERRMITTENT LOW ABDOMINAL PAIN 04/08 X 3 MONTHS,WORSE SINCE YESTERDAY. ABDOMEN SOFT AND NON-DISTENDED. WILL CONTINUE TO MONITOR THE PATIENT.
--- NOTE | 2022-02-11 08:36 | NUR ---
URINE COLLCTED AND SENT TO THE LAB
[2022-02-11 08:42] LABS: BASOPHILS % (AUTO) 0.5 % (0.0-2.0); EOSINOPHILS % (AUTO) 2.3 % (0.0-6.0); HEMATOCRIT 38 % (33-45); HEMOGLOBIN 12.5 g/dL (11.5-14.8); LYMPHOCYTES # (AUTO) 2.3 K/uL (0.8-4.8); LYMPHOCYTES % (AUTO) 27.1 % (20.0-44.0); MEAN CORPUSCULAR HGB CONC 33 g/dl (31.0-36.0); MEAN CORPUSCULAR VOLUME 88 fL (82-100); MONOCYTES # (AUTO) 0.5 K/uL (0.1-1.30); MONOCYTES % (AUTO) 5.6 % (2.0-12.0); NEUTROPHILS # (AUTO) 5.5 K/uL (1.8-8.9); NEUTROPHILS % (AUTO) 64.5 % (43.0-81.0); PLATELET COUNT (AUTO) 199 K/uL (150-450); RED BLOOD CELL COUNT(AUTO) 4.33 MIL/uL (4.0-5.2); WHITE BLOOD COUNT (AUTO) 8.5 K/uL (4.3-11.0)
--- NOTE | 2022-02-11 08:49 | NUR ---
US TECH AT THE BEDSIDE
[2022-02-11 09:19] LABS: BILIRUBIN,DIRECT 0.1 mg/dL (0.0-0.2); BILIRUBIN,TOTAL 0.6 mg/dL (0.2-1.0); CALCIUM, SERUM 8.7 mg/dL (8.5-10.1); CREATININE 0.7 mg/dL (0.6-1.3); POTASSIUM 3.6 mmol/L (3.5-5.1); TOTAL PROTEIN, SERUM 7.4 g/dL (6.4-8.2)
[2022-02-11 09:46] LABS: BILIRUBIN,URINE NEGATIVE (NEGATIVE); COLOR,URINE YELLOW (YELLOW); LEUKOCYTE ESTERASE ,URINE NEGATIVE (NEGATIVE); NITRITE, URINE NEGATIVE (NEGATIVE); PROTEIN,URINE NEGATIVE (NEGATIVE); UGLUCOSE NEGATIVE (NEGATIVE); UROBILINOGEN,URINE 0.2 EU/dL (0.2)
[2022-02-11 10:14] LABS: BACTERIA,URINE None seen /HPF (None Seen); MUCUS,URINE Few /LPF (None Seen); SQUAMOUS EPITHELIAL CELL,UR Many /HPF (None Seen)
[2022-02-11] MEDS ORDERED: IBUPROFEN 600 MG TABLET ONE (10:27)
[2022-02-11] MEDS ORDERED: IBUPROFEN 600 MG TABLET PO ONE (10:30)
[2022-02-11 11:09] VITALS: BP 124/67
--- NOTE | 2022-02-11 11:09 | NUR ---
Patient discharged to home in stable condition. Written and verbal after care instructions given. Patient verbalizes understanding of instruction.
== END 2022-02-11 11:09 | disposition home or self-care (01) ==
LOC: ER 07:43
DX: N83.202 Unspecified ovarian cyst, left side (principal); G89.29 Other chronic pain; R10.32 Left lower quadrant pain; G43.909 Migraine, unspecified, not intractable, without status migrainosus; J45.909 Unspecified asthma, uncomplicated; Z79.899 Other long term (current) drug therapy
CPT/HCPCS: 36415; 76856-TC; 80048-TC; 80076-TC; 81001; 83690-TC; 84703-TC; 85025-TC

== ENCOUNTER 2022-03-16 21:28 | Emergency (ER) | payer OTHER ==
[~2022-03-16] VITALS: Ht 160 cm; Wt 78.5 kg
[2022-03-16] MEDS ORDERED: ONDA4TAB5 PO (22:09)
[2022-03-16] MEDS ORDERED: IBUP-1955 PO (22:10)
[2022-03-16] MEDS ORDERED: ONDANSETRON 4 MG TAB.RAPDIS ONE (22:13)
--- NOTE | 2022-03-16 22:15 | NUR ---
Patient discharged to home in stable condition. Written and verbal after care instructions given. Patient verbalizes understanding of instruction.
[2022-03-16 22:16] VITALS: BP 132/80
[2022-03-16] MEDS ORDERED: ONDANSETRON 4 MG TAB.RAPDIS PO ONE (22:30)
== END 2022-03-16 22:16 | disposition home or self-care (01) ==
LOC: ER 21:40
DX: S09.90XA Unspecified injury of head, initial encounter (principal); G43.909 Migraine, unspecified, not intractable, without status migrainosus; J45.909 Unspecified asthma, uncomplicated; Z87.42 Personal history of other diseases of the female genital tract; Z79.899 Other long term (current) drug therapy; W51.XXXA Accidental striking against or bumped into by another person, initial encounter; Y93.89 Activity, other specified; Y92.89 Other specified places as the place of occurrence of the external cause; Y99.8 Other external cause status
CPT/HCPCS: 99283; Q0162

== ENCOUNTER 2022-09-11 03:48 | Emergency (ER) | payer OTHER ==
[~2022-09-11] VITALS: Ht 160 cm; Wt 2.4 kg
[~2022-09-11 03:48] MED LIST changes: +IBUP-1955 PO; +ONDA4TAB5 PO
[2022-09-11 04:05] VITALS: BP 134/72
--- NOTE | 2022-09-11 04:06 | NUR ---
PATIENT BIBSELF C/O RIGHT SIDED ABD PAIN RAD TO RIGHT FLANK X 4 DAYS. PATIENT TAKEN ABX FOR UTI. PATIENT IS A/O X 4, RR EVEN AND UNLABORED, VSS, PATIENT IS AFEBRILE. PATIENT TAKEN TO ER BED 02.
--- NOTE | 2022-09-11 04:08 | NUR ---
PATIENT UNALBE TO PROVIDE URINE AT THIS TIME
--- NOTE | 2022-09-11 04:18 | NUR ---
URINE COLLECTED SENT TO LAB
[2022-09-11 04:23] LABS: BASOPHILS % (AUTO) 0.5 % (0.0-2.0); EOSINOPHILS % (AUTO) 2.4 % (0.0-6.0); HEMATOCRIT 38 % (33-45); HEMOGLOBIN 12.7 g/dL (11.5-14.8); LYMPHOCYTES # (AUTO) 3.4 K/uL (0.8-4.8); LYMPHOCYTES % (AUTO) 31.6 % (20.0-44.0); MEAN CORPUSCULAR HGB CONC 33 g/dl (31.0-36.0); MEAN CORPUSCULAR VOLUME 86 fL (82-100); MONOCYTES # (AUTO) 0.8 K/uL (0.1-1.30); MONOCYTES % (AUTO) 7.3 % (2.0-12.0); NEUTROPHILS # (AUTO) 6.2 K/uL (1.8-8.9); NEUTROPHILS % (AUTO) 58.2 % (43.0-81.0); PLATELET COUNT (AUTO) 201 K/uL (150-450); RED BLOOD CELL COUNT(AUTO) 4.44 MIL/uL (4.0-5.2); WHITE BLOOD COUNT (AUTO) 10.7 K/uL (4.3-11.0)
[2022-09-11 04:25] LABS: BILIRUBIN,URINE NEGATIVE (NEGATIVE); COLOR,URINE YELLOW (YELLOW); LEUKOCYTE ESTERASE ,URINE TRACE (NEGATIVE); NITRITE, URINE NEGATIVE (NEGATIVE); PH,URINE 5.5 (5.0-8.0); PROTEIN,URINE NEGATIVE (NEGATIVE); UGLUCOSE NEGATIVE (NEGATIVE); UROBILINOGEN,URINE 0.2 EU/dL (0.2)
[2022-09-11 04:32] LABS: CALCIUM, SERUM 8.6 mg/dL (8.5-10.1); CREATININE 0.7 mg/dL (0.6-1.3); POTASSIUM 3.6 mmol/L (3.5-5.1)
[2022-09-11 04:41] LABS: SQUAMOUS EPITHELIAL CELL,UR Moderate /HPF (None Seen)
[2022-09-11 04:44] LABS: BACTERIA,URINE Few /HPF (None Seen)
[2022-09-11] MEDS ORDERED: CEPH500C2 PO (05:24)
--- NOTE | 2022-09-11 06:35 | NUR ---
Patient discharged to home in stable condition. Written and verbal after care instructions given. Patient verbalizes understanding of instruction.
== END 2022-09-11 06:35 | disposition home or self-care (01) ==
LOC: ER 04:03
DX: N39.0 Urinary tract infection, site not specified (principal); R10.31 Right lower quadrant pain; G43.909 Migraine, unspecified, not intractable, without status migrainosus; J45.909 Unspecified asthma, uncomplicated; Z79.899 Other long term (current) drug therapy
CPT/HCPCS: 36415; 80048-TC; 81001; 84703-TC; 85025-TC; 87086-TC

== ENCOUNTER 2022-12-29 17:04 | Emergency (ER) | payer OTHER ==
[~2022-12-29 17:04] MED LIST changes: +CEPH500C2 PO
--- NOTE | 2022-12-29 17:25 | NUR ---
CALLED, NO ANSWER
--- NOTE | 2022-12-29 17:48 | NUR ---
CALLED TO TRIAGE,NO ANSWER
== END 2022-12-29 17:49 | disposition left against medical advice (07) ==
LOC: ER 17:15
DX: Z53.21 Procedure and treatment not carried out due to patient leaving prior to being seen by health care provider (principal)